=== PATIENT | male | born 1985 | race African-American/Black ===

== ENCOUNTER → 2020-03-29 | Outpatient (CLI) | payer OTHER ==
--- NOTE | 2020-04-02 09:01 | REP ---
LEFT KNEE SERIES: 5-VIEWS HISTORY: Pain in the left knee. FINDINGS: Five views of the left knee demonstrate overall normal mineralization. Joint spaces are preserved. No fracture is seen. The lateral view shows fullness in the suprapatellar bursa region consistent with joint effusion. IMPRESSION: Findings consistent with joint effusion. No acute bony abnormality. MTDD
== END ==
LOC: M RAD 08:40
PROVIDERS: ATTEND Surgery
DX: M25.462 Effusion, left knee (principal)